=== PATIENT | male | born 1960 | race Caucasian/White ===

== ENCOUNTER → 2018-01-26 | Outpatient (CLI) | payer BC, OTHER ==
[~2018-01-26] MED LIST: REGADENOSON 0.4 MG/5 ML SYRINGE ONE
== END | disposition home or self-care (01) ==
LOC: CVU 10:41
PROVIDERS: ATTEND Physician Assistant Medical
DX: I25.89 Other forms of chronic ischemic heart disease (principal); I35.0 Nonrheumatic aortic (valve) stenosis; I42.9 Cardiomyopathy, unspecified; I10 Essential (primary) hypertension; E11.9 Type 2 diabetes mellitus without complications; Z87.891 Personal history of nicotine dependence
CPT/HCPCS: 78452; 93017; 93306; A9502; J2785

== ENCOUNTER 2018-02-03 08:46 | Observation (INO) | payer OTHER ==
[~2018-02-03] VITALS: Ht 177.8 cm; Wt 148.6 kg
[2018-02-03] MEDS ORDERED: SODIUM CHLORIDE 0.9% 1,000 ML IV ONE (09:54)
[2018-02-03 09:58] VITALS: BP 136/78
[2018-02-03] MEDS ORDERED: DIPHENHYDRAMINE 50 MG/ML, 1ML IVPush ONE (10:00)
[2018-02-03] MEDS ORDERED: ROSU20TA PO (10:18)
[2018-02-03] MEDS ORDERED: ALBU8.5H8 INH (10:18)
[2018-02-03] MEDS ORDERED: TIOT18CA INH (10:18)
[2018-02-03] MEDS ORDERED: SUMA50TA3 PO (10:18)
[2018-02-03] MEDS ORDERED: TRAZ50TA18 PO (10:18)
[2018-02-03] MEDS ORDERED: SERT100T5 PO (10:18)
[2018-02-03] MEDS ORDERED: [UNRECOGNIZED DRUG - OTHER] (10:18)
[2018-02-03] MEDS ORDERED: DAPA1TAB3 PO (10:18)
[2018-02-03] MEDS ORDERED: CLOP75TA PO (10:18)
[2018-02-03] MEDS ORDERED: ASPI-621 PO (10:18)
[2018-02-03] MEDS ORDERED: Humalog (10:18)
[2018-02-03] MEDS ORDERED: VALS320T2 PO (10:18)
[2018-02-03 10:30] LABS: BASOPHILS # (AUTO) 0.19 x10^3/uL (0-0.1); BASOPHILS % (AUTO) 2 % (0-1); EOSINOPHILS # (AUTO) 0.42 x10^3/uL (0-0.4); EOSINOPHILS % (AUTO) 4 % (1-7); LYMPHOCYTES % (AUTO) 21 % (22-44); MD NO; MEAN CORPUSCULAR HGB CONC 33.8 g/dL (33.2-36.2); MEAN CORPUSCULAR VOLUME 88.8 fL (81-97); MEAN PLATELET VOLUME 7.4 fL (7.4-10.4); MONOCYTES # (AUTO) 0.64 x10^3/uL (0.2-0.8); MONOCYTES % (AUTO) 6 % (2-9); NEUTROPHILS # (AUTO) 7.46 x10^3/uL (1.8-6.8); NEUTROPHILS % (AUTO) 68 % (42-75); PLATELET COUNT 218 x10^3/uL (130-400); RED CELL DISTRIBUTION WIDTH 15.8 % (9.4-14.8)
[2018-02-03] MEDS ORDERED: PLEASE ENTER HEIGHT AND WEIGHT MC SCH (10:30)
[2018-02-03 10:41] LABS: ANION GAP 6 mmol/L (5-15); CALCIUM 8.3 mg/dL (8.5-10.1); CHLORIDE 105 mmol/L (98-107); CREATININE 0.64 mg/dL (0.7-1.3)
[2018-02-03 11:04] LABS: INTERNATIONAL NORMALIZED RATIO 1.01 (0.93-1.1); PROTHROMBIN TIME 10.5 Seconds (9.6-11.5)
[2018-02-03] MEDS ORDERED: FENTANYL PF 100 MCG/2ML ONE (12:29)
[2018-02-03] MEDS ORDERED: MIDAZOLAM 1 MG/ML, 2ML ONE (12:29)
[2018-02-03] MEDS ORDERED: VERAPAMIL 2.5 MG/ML, 2ML ONE (12:29)
[2018-02-03] MEDS ORDERED: HEPARIN 1,000 UNITS/ML, 10ML ONE (12:30)
[2018-02-03] MEDS ORDERED: LIDOCAINE 2%, 2ML ONE (12:50)
[2018-02-03] MEDS ORDERED: MIDAZOLAM 1 MG/ML, 5ML ONE (12:51)
[2018-02-03] MEDS ORDERED: BIVALIRUDIN 250 MG ONE (13:06)
[2018-02-03] MEDS ORDERED: TICAGRELOR 90 MG TABLET ONE (13:21)
[2018-02-03] MEDS: SODIUM CHLORIDE 0.9% 1,000 ML IV SCH ×2 (13:23→19:38)
[2018-02-03] MEDS ORDERED: ONDANSETRON 2MG/ML, 2ML IVPush PRN (13:30)
[2018-02-03] MEDS ORDERED: BISACODYL 5 MG EC TABLET PO PRN (13:30)
[2018-02-03] MEDS ORDERED: SUMATRIPTAN 50 MG TABLET PO PRN (13:30)
[2018-02-03] MEDS ORDERED: IPRATROPIUM 0.5 MG/2.5 ML INHA HHN SCH ×2 (13:30→21:00)
[2018-02-03] MEDS ORDERED: BISACODYL 10 MG SUPP PR PRN (13:30)
[2018-02-03] MEDS ORDERED: ACETAMINOPHEN 325 MG TABLET PO PRN (13:30)
[2018-02-03] MEDS ORDERED: ALBUTEROL SULFATE 2.5 MG/3 ML HHN PRN (14:08)
[2018-02-03 14:54] VITALS: BP 127/72
[2018-02-03] MEDS ORDERED: ALBUTEROL/IPRATROPIUM 2.5MG/0.5MG, 3 ML ONE ×2 (17:09→17:14)
[2018-02-03 19:19] VITALS: BP 114/67
[2018-02-03] MEDS: TICAGRELOR 90 MG TABLET PO SCH (20:03)
[2018-02-03] MEDS ORDERED: IPRATROPIUM 0.5 MG/2.5 ML INHA HHN PRN (21:00)
[2018-02-03] MEDS ORDERED: ATORVASTATIN 40 MG TABLET PO SCH (21:00)
[2018-02-03] MEDS: ZOLPIDEM 5MG TABLET PO PRN (22:53)
[2018-02-04] MEDS: ZOLPIDEM 5MG TABLET PO PRN (00:43)
[2018-02-04 01:03] VITALS: BP 111/65
[2018-02-04] MEDS: SODIUM CHLORIDE 0.9% 1,000 ML IV SCH (03:00)
[2018-02-04 05:13] LABS: ALBUMIN 3.3 g/dL (3.4-5.0); ANION GAP 6 mmol/L (5-15); CALCIUM 8.8 mg/dL (8.5-10.1); CHLORIDE 104 mmol/L (98-107); CREATININE 0.66 mg/dL (0.7-1.3)
[2018-02-04 07:54] VITALS: BP 146/82
[2018-02-04] MEDS: TICAGRELOR 90 MG TABLET PO SCH (08:02)
[2018-02-04] MEDS ORDERED: NITR0.4T28 SL (08:55)
[2018-02-04] MEDS ORDERED: TICA90TA PO (08:55)
[2018-02-04] MEDS ORDERED: VALSARTAN 320 MG TABLET PO SCH (09:00)
[2018-02-04] MEDS ORDERED: CALCIUM CARBONATE 500 MG TAB.CHEW PO ONE (09:00)
[2018-02-04] MEDS ORDERED: SERTRALINE 100MG TABLET PO SCH (09:00)
[2018-02-04] MEDS ORDERED: TRAZODONE 50MG TABLET PO SCH (09:00)
[2018-02-04] MEDS ORDERED: ASPIRIN 81 MG TABLET EC PO SCH (09:00)
[2018-02-04] MEDS ORDERED: CALCIUM CARBONATE 500 MG TAB.CHEW PO PRN (11:30)
== END 2018-02-04 12:36 | disposition home or self-care (01) ==
LOC: CACL 08:46 → 5SO 13:23
PROVIDERS: ADMIT Internal Medicine Cardiovascular Disease; ATTEND Internal Medicine Cardiovascular Disease
DX: I25.110 Atherosclerotic heart disease of native coronary artery with unstable angina pectoris (principal); I25.82 Chronic total occlusion of coronary artery
CPT/HCPCS: 36415; 80048; 82040; 85025; 85610; 93005; 93458; 94640; 94660; 99156; 99157; C1725; C1769; C1874; C1887; C1894; C9600; G0378; J0583; J1644; J2250; J3010; J3490; J7030; Q9967; J7613; J7644

== ENCOUNTER → 2018-06-28 | Outpatient (CLI) | payer OTHER ==
[~2018-06-28] MED LIST changes: +ALBU8.5H8 INH; +ASPI-621 PO; +CLOP75TA PO; +DAPA1TAB3 PO; +Humalog; +NITR0.4T28 SL; -REGADENOSON 0.4 MG/5 ML SYRINGE ONE; +ROSU20TA PO; +SERT100T5 PO; +SUMA50TA3 PO; +TICA90TA PO; +TIOT18CA INH; +TRAZ-136 PO; +VALS320T2 PO; +[UNRECOGNIZED DRUG - OTHER]
== END | disposition home or self-care (01) ==
LOC: CVU 12:46
PROVIDERS: ATTEND Internal Medicine Cardiovascular Disease
DX: I65.23 Occlusion and stenosis of bilateral carotid arteries (principal); I25.10 Atherosclerotic heart disease of native coronary artery without angina pectoris; E78.2 Mixed hyperlipidemia; E11.9 Type 2 diabetes mellitus without complications; Z87.891 Personal history of nicotine dependence
CPT/HCPCS: 93880

== ENCOUNTER → 2018-07-04 | Outpatient (CLI) | payer OTHER ==
[~2018-07-04] MED LIST changes: +OMNIPAQUE 350 MG/ML, 100ML BOTTLE ONE
== END | disposition home or self-care (01) ==
LOC: CFH 14:36
PROVIDERS: ATTEND Family Medicine
DX: J18.9 Pneumonia, unspecified organism (principal); I25.10 Atherosclerotic heart disease of native coronary artery without angina pectoris
CPT/HCPCS: 71260; 82565; Q9967

== ENCOUNTER → 2018-07-13 | Outpatient (CLI) | payer OTHER ==
[~2018-07-13] MED LIST changes: -OMNIPAQUE 350 MG/ML, 100ML BOTTLE ONE
== END | disposition home or self-care (01) ==
LOC: CFH 15:56
PROVIDERS: ATTEND Family Medicine
DX: I82.4Z2 Acute embolism and thrombosis of unspecified deep veins of left distal lower extremity (principal); M79.662 Pain in left lower leg

== ENCOUNTER 2018-11-13 09:34 | Observation (INO) | payer OTHER ==
[~2018-11-13] VITALS: Ht 177.8 cm; Wt 144.0 kg
[~2018-11-13 09:34] MED LIST changes: -ASPI-621 PO; +ASPI81TA45 PO; +SERT100T32 PO; -SERT100T5 PO; -TRAZ-136 PO; +TRAZ50TA66 PO
[2018-11-13] MEDS ORDERED: SODIUM CHLORIDE FLUSH 10ML SYR IVF ONE (10:00)
[2018-11-13] MEDS ORDERED: ASPIRIN 81 MG TABLET CHEW PO ONE (10:00)
--- NOTE | 2018-11-13 10:06 | NUR ---
Pt to 10 from lobby
[2018-11-13] MEDS ORDERED: ASPIRIN 81 MG TABLET CHEW ONE (10:14)
[2018-11-13 10:15] LABS: BASOPHILS # (AUTO) 0.07 x10^3/uL (0-0.1); BASOPHILS % (AUTO) 1 % (0-1); EOSINOPHILS % (AUTO) 2 % (1-7); LYMPHOCYTES # (AUTO) 1.87 x10^3/uL (1-3.4); LYMPHOCYTES % (AUTO) 19 % (22-44); MD NO; MEAN CORPUSCULAR HEMOGLOBIN 28.7 pg (27.5-34.5); MEAN CORPUSCULAR VOLUME 86.9 fL (81-97); MEAN PLATELET VOLUME 7.6 fL (7.4-10.4); MONOCYTES # (AUTO) 0.48 x10^3/uL (0.2-0.8); MONOCYTES % (AUTO) 5 % (2-9); NEUTROPHILS # (AUTO) 7.46 x10^3/uL (1.8-6.8); NEUTROPHILS % (AUTO) 74 % (42-75); PLATELET COUNT 196 x10^3/uL (130-400); RED BLOOD COUNT 5.31 x10^6/uL (4.38-5.82)
[2018-11-13 10:27] LABS: ALBUMIN 3.7 g/dL (3.4-5.0); ANION GAP 6 mmol/L (5-15); CALCIUM 8.7 mg/dL (8.5-10.1); CHLORIDE 106 mmol/L (98-107)
[2018-11-13 10:31] LABS: TROPONIN I < 0.015 ng/mL (0.000-0.045)
--- NOTE | 2018-11-13 11:17 | NUR ---
PT TO BE ADMITTED. PT AGREES WITH PLAN OF CARE.
[2018-11-13] MEDS ORDERED: LOSA50TA14 PO (11:22)
[2018-11-13] MEDS ORDERED: CLOP75TA PO (11:22)
[2018-11-13] MEDS ORDERED: NITROGLYCERIN 0.4 MG BOTTLE (25 TABS) SL PRN (12:30)
[2018-11-13] MEDS ORDERED: TEMPLATE NON-FORMULARY MED. (Tiotropium Bromide** (Spiriva**) 18 MCG) INH PRN (12:30)
[2018-11-13] MEDS: TEMPLATE NON-FORMULARY MED. (Albuterol Sulfate (Proair Hfa) 2 PUFF(S)) INH SCH ×3 (12:30→20:10)
[2018-11-13 12:36] LABS: TROPONIN I 0.021 ng/mL (0.000-0.045)
[2018-11-13 12:42] LABS: THYROID STIMULATING HORMONE 0.634 mIU/L (0.358-3.740)
[2018-11-13 13:55] VITALS: BP 130/64
[2018-11-13] MEDS: ENOXAPARIN 30 MG/0.3 ML SQ SCH (14:35)
[2018-11-13] MEDS: ASPIRIN 81 MG TABLET EC PO SCH (14:35)
[2018-11-13] MEDS ORDERED: ALBUTEROL/IPRATROPIUM 2.5MG/0.5MG, 3 ML ONE (15:24)
[2018-11-13] MEDS ORDERED: ALBUTEROL/IPRATROPIUM 2.5MG/0.5MG, 3 ML NPPB PRN (16:00)
[2018-11-13 18:08] LABS: TROPONIN I < 0.015 ng/mL (0.000-0.045)
[2018-11-13 19:40] VITALS: BP 120/71
[2018-11-13] MEDS: ALBUTEROL/IPRATROPIUM 2.5MG/0.5MG, 3 ML NPPB SCH (20:00)
[2018-11-13] MEDS: ATORVASTATIN 40 MG TABLET PO SCH (20:09)
[2018-11-13] MEDS: FAMOTIDINE 20 MG TABLET PO SCH (20:09)
[2018-11-14] MEDS: TEMPLATE NON-FORMULARY MED. (Albuterol Sulfate (Proair Hfa) 2 PUFF(S)) INH SCH ×7 (00:30→20:06)
[2018-11-14 01:08] VITALS: BP_SYST 128; BP_DIAS 66; BP_DIAS 76
[2018-11-14] MEDS: ENOXAPARIN 30 MG/0.3 ML SQ SCH ×2 (01:31→14:24)
[2018-11-14 05:50] LABS: BASOPHILS # (AUTO) 0.04 x10^3/uL (0-0.1); BASOPHILS % (AUTO) 0 % (0-1); EOSINOPHILS % (AUTO) 2 % (1-7); LYMPHOCYTES # (AUTO) 2.02 x10^3/uL (1-3.4); LYMPHOCYTES % (AUTO) 22 % (22-44); MD NO; MEAN CORPUSCULAR HEMOGLOBIN 29.3 pg (27.5-34.5); MEAN CORPUSCULAR HGB CONC 33.7 g/dL (33.2-36.2); MEAN CORPUSCULAR VOLUME 87.1 fL (81-97); MEAN PLATELET VOLUME 7.5 fL (7.4-10.4); MONOCYTES # (AUTO) 0.65 x10^3/uL (0.2-0.8); MONOCYTES % (AUTO) 7 % (2-9); NEUTROPHILS # (AUTO) 6.11 x10^3/uL (1.8-6.8); NEUTROPHILS % (AUTO) 68 % (42-75); PLATELET COUNT 185 x10^3/uL (130-400); RED BLOOD COUNT 5.04 x10^6/uL (4.38-5.82); RED CELL DISTRIBUTION WIDTH 16.3 % (9.4-14.8)
[2018-11-14 06:05] LABS: ALBUMIN 3.6 g/dL (3.4-5.0); ANION GAP 6 mmol/L (5-15); CALCIUM 8.4 mg/dL (8.5-10.1); CHLORIDE 107 mmol/L (98-107)
[2018-11-14 06:08] LABS: ALANINE AMINOTRANSFERASE 22 U/L (12-78); ALKALINE PHOSPHATASE 88 U/L (45-117); BILIRUBIN,TOTAL 0.4 mg/dL (0.2-1.0); TOTAL PROTEIN 7.6 g/dL (6.4-8.2)
[2018-11-14 07:45] VITALS: BP 114/76
[2018-11-14] MEDS: FAMOTIDINE 20 MG TABLET PO SCH ×2 (07:55→19:51)
[2018-11-14] MEDS: ASPIRIN 81 MG TABLET EC PO SCH (07:55)
[2018-11-14] MEDS: CLOPIDOGREL 75 MG TABLET PO SCH (07:55)
[2018-11-14] MEDS: LOSARTAN 50MG TABLET PO SCH (07:55)
[2018-11-14] MEDS: SERTRALINE 100MG TABLET PO SCH (07:55)
[2018-11-14] MEDS: ALBUTEROL/IPRATROPIUM 2.5MG/0.5MG, 3 ML NPPB SCH (08:13)
[2018-11-14] MEDS ORDERED: REGADENOSON 0.4 MG/5 ML SYRINGE ONE (08:29)
[2018-11-14 13:15] VITALS: BP 123/79
[2018-11-14 19:16] VITALS: BP 127/70
[2018-11-14] MEDS: TRAZODONE 50MG TABLET PO SCH (19:51)
[2018-11-14] MEDS: ATORVASTATIN 40 MG TABLET PO SCH (19:52)
[2018-11-14] MEDS ORDERED: ACETAMINOPHEN 325 MG TABLET PO PRN (20:30)
[2018-11-15] MEDS: TEMPLATE NON-FORMULARY MED. (Albuterol Sulfate (Proair Hfa) 2 PUFF(S)) INH SCH ×4 (00:30→13:15)
[2018-11-15 02:21] VITALS: BP 134/77
[2018-11-15] MEDS: ENOXAPARIN 30 MG/0.3 ML SQ SCH (02:22)
[2018-11-15 08:20] VITALS: BP 129/74
[2018-11-15] MEDS: TRAZODONE 50MG TABLET PO SCH (08:30)
[2018-11-15] MEDS: FAMOTIDINE 20 MG TABLET PO SCH (08:31)
[2018-11-15] MEDS: LOSARTAN 50MG TABLET PO SCH (08:31)
[2018-11-15] MEDS: CLOPIDOGREL 75 MG TABLET PO SCH (08:31)
[2018-11-15] MEDS: ASPIRIN 81 MG TABLET EC PO SCH (08:31)
[2018-11-15] MEDS: SERTRALINE 100MG TABLET PO SCH (08:31)
[2018-11-15 13:56] VITALS: BP 137/79
== END 2018-11-15 15:24 | disposition home or self-care (01) ==
LOC: ED 10:45 → EDIP 10:56 → INTOOBSV 10:56 → 5SO 13:36 → DCLOUNGE 11-15 15:17
PROVIDERS: ADMIT Internal Medicine; ATTEND Internal Medicine
DX: R07.89 Other chest pain (principal); E11.9 Type 2 diabetes mellitus without complications; E66.01 Morbid (severe) obesity due to excess calories; E78.5 Hyperlipidemia, unspecified; F32.9 Major depressive disorder, single episode, unspecified; G47.33 Obstructive sleep apnea (adult) (pediatric); I10 Essential (primary) hypertension; I25.10 Atherosclerotic heart disease of native coronary artery without angina pectoris; I25.82 Chronic total occlusion of coronary artery; J44.9 Chronic obstructive pulmonary disease, unspecified; Z79.02 Long term (current) use of antithrombotics/antiplatelets; Z79.4 Long term (current) use of insulin; Z79.82 Long term (current) use of aspirin; Z87.01 Personal history of pneumonia (recurrent); Z87.891 Personal history of nicotine dependence; Z95.5 Presence of coronary angioplasty implant and graft; Z96.41 Presence of insulin pump (external) (internal)
CPT/HCPCS: 36415; 71045; 78452; 80048; 80053; 82040; 83880; 84443; 84484; 85025; 93005; 93017; 94640; 96372; 99284; A9502; C9898; G0378; J1650; J2785; J7620

== ENCOUNTER → 2018-12-14 | Outpatient (CLI) | payer OTHER ==
[~2018-12-14] MED LIST changes: +LOSA50TA14 PO; -ROSU20TA PO; +ROSU20TA2 PO
== END | disposition home or self-care (01) ==
LOC: CFH 07:11
PROVIDERS: ATTEND Family Medicine
DX: M19.012 Primary osteoarthritis, left shoulder (principal); M25.712 Osteophyte, left shoulder